=== PATIENT | female | born 1995 | race Caucasian/White ===

== ENCOUNTER 2024-06-05 04:13 | Emergency (ER) | payer OTHER, SELFPAY ==
[2024-06-05 04:14] VITALS: BMI 45.9
[2024-06-05 04:15] VITALS: BP 164/100
[2024-06-05 04:28] VITALS: BP 144/114
--- NOTE | 2024-06-05 04:36 | ED.GENMED ---
History of Present Illness
General
Chief Complaint: Abdominal Pain
Source: patient
Exam Limitations: none
Time Seen by Provider: 06/05/24 04:22
Nursing documentation reviewed up to this point in time: agreed with
History of Present Illness
History of Present Illness:
This is a 28-year-old female with history of irritable bowel syndrome, hypothyroidism who complains of right lateral flank pain that began yesterday evening, has gotten worse throughout the evening, branch lead. She denies insightful injury but
does admit to significant bending/lifting yesterday while she was at a medical facility with her son who was being evaluated. She has had a cough, ongoing for the past 4 weeks, denies fever but admits that cough has worsened over the past 4 days.
Right lateral flank pain is much worse with movement, worse with deep breath. She denies shortness of breath, denies palpitations, denies abdominal pain, no nausea or vomiting, no diarrhea nor constipation, no dysuria and urgency and or hematuria.
She took Tylenol at 10 PM without relief. She has also been trying local heat, ice without significant relief.
Her menstrual period began yesterday, normal and on time.
Her only daily medication is levothyroxine but she admits that she often forgets this. She does not take control. Non-smoker.
No recent travel. She denies leg pain or swelling.
Past History
Past History
ED Past Medical History: Asthma (as child), Hypothyroidism and Other (Irritable bowel syndrome)
ED Past Surgical History: None
Social History
Tobacco: Non-smoker
Alcohol: Occasional
Personal: Single
Living: with family
Employment: Not employed
Family History
Family History: Other (Noncontributory)
Phy Exam
Physical Exam
Physical Exam:
GENERAL: 28-year-old obese woman appears her stated age, awake and alert, tearful and appears in moderate distress related to pain. Cooperative.
EYE: Tearful. Anicteric
NECK: Supple, nontender, no meningismus, no significant adenopathy.
ENT: oral mucosa is moist. Clear rhinorrhea.
CARDIAC: Regular rate and rhythm. no murmur. No rub. Moderate tenderness right lateral mid to distal costal region. Palpation exactly reproduces patient's pain complaint. No crepitus. There is minimal erythema right lateral lower costal region
that I suspect is related to recent ice/heat application. There is no vesicle formation. No palpable heat.
LUNGS: Clear breath sounds bilaterally, no acute respiratory distress, no wheezes/rales/rhonchi
ABDOMEN: Rotund, soft, nondistended, without focal tenderness, no r/g, no cvat. normoactive BS.
BACK: No midline bony tenderness.
NEUROLOGICAL: Alert and oriented x3, no focal neuro deficits. Gait is steady.
SKIN: Warm and dry, normal color, skin intact. No rash.
MUSCULOSKELETAL: No C/C/E. peripheral pulses are full and equal b/l. No palpable tenderness.
PSYCH: Mildly anxious, tearful.
Course
Orders/Labs/Results
Orders:
Orders
06/05/24 04:35
0.9% Sodium Chloride 1000 ml [Nss] 1,000 ml IV BOLUS
Ketorolac [Toradol] 30 mg IV NOW STA
Test Result ONCE
06/05/24 04:46
Comprehensive Metabolic Panel Urgent
D-Dimer Urgent
HCG, Serum Qualitative Screen Urgent
06/05/24 04:47
Complete Blood Count/With Diff Urgent
Free T4 Urgent
TSH Reflex To Free T4 Urgent
06/05/24 05:42
CR Chest - 2 Views Urgent
Comment:
Reason For Exam: cough x 4 weeks, right lateral rib pain
06/05/24 06:23
Azithromycin [Zithromax] 500 mg PO NOW STA
06/05/24 06:29
Acetaminophen 1000 MG ONCE Acetaminophen 1000MG/100Ml [Ofirmev] 1,000 mg in 100 ml IV ONCE
Acetaminophen IV Indication:: ED Narcotic Naive Pt-ONCE
Abnormal Lab Results
06/05/24 06/05/24
04:46 04:47
MCHC 32.8 L g/dL
(33.0-37.0)
Abs Immat Gran (auto) 0.1 H 10^3/uL
(0-0.05)
Absolute Neuts (auto) 7.1 H 10^3/uL
(1.4-6.5)
Immature Gran % 0.6 H %
(0-0.5)
Glucose 117 H mg/dl
(70-99)
TSH (Reflex) 5.02 H uIU/ml
(0.47-4.68)
06/05/24 04:47
06/05/24 04:46
Vital Signs
Initial and Last Documented VS:
Initial Vital Signs
Temp Pulse Resp BP Pulse Ox
98.9 F 88 16 164/100 97
06/05/24 04:15 06/05/24 04:15 06/05/24 04:15 06/05/24 04:15 06/05/24 04:15
Last Documented Vital Signs
Temp Pulse Resp BP Pulse Ox
98.9 F 88 16 144/114 97
06/05/24 04:15 06/05/24 04:15 06/05/24 04:15 06/05/24 04:28 06/05/24 04:30
MDM/Problems Addressed
Differential Diagnosis Includes:
Concern for musculoskeletal/intercostal muscle strain. Concern for pneumonia, pleurisy. Prodrome to herpes zoster is much less likely.
No definitive risk factors for thromboembolism but right lateral flank pain is somewhat pleuritic in nature.
Area of pain is much higher in the right lateral thorax region and not consistent with renal colic, there is no CVA tenderness on exam.
Abdomen is soft without appreciable tenderness.
Will medicate for pain with IV Toradol.
Will check labs including D-dimer.
Will consider chest x-ray versus CT of the chest.
*Radiology
Radiology exam reviewed: preliminary read by ED provider (Chest x-ray, although poor inspiratory effort shows small patchy infiltrates on the left, left upper lobe as well as left lower lobe. Right lung field is clear. No pleural effusion. No
pneumothorax.)
*Pulse Oximetry
Patient hypoxic: no
*Critical Care Note
Total Time (30-74mins, 75-104mins- exclusive of procedures): Not Applicable
Update Note
Update Note:
05:45
Patient resting comfortably.
Reports marked improvement in pain after IV Toradol.
Labs are unremarkable including negative D-dimer.
TSH is only minimally elevated at 5.02. Free T4 is pending.
Will check chest x-ray.
06:30
Chest x-ray concerning for small focal infiltrates left upper lobe as well as left lower lobe. Right lung field is clear. No pleural effusion.
Will initiate Zithromax for coverage of community-acquired pneumonia.
Will add Tessalon for as needed cough.
Will add diclofenac for as needed pain.
Recommend continuing with local heat, can trial onpz-vms-exnwoyw lidocaine patches.
Free T4 within normal limits.
Patient admits to poor compliance with levothyroxine and although TSH is very mildly elevated, free T4 within normal limits and at this point not convincing that patient requires levothyroxine.
Will refer to our family practice residency clinic for follow-up.
ED Attending Note
-
Portions of this chart may have been created with voice recognition software.� Occasional wrong word or��sound alike� substitutions may have occurred due to the inherent limitations of voice recognition software.
Discharge Plan
Departure
Patient Disposition: Home (Routine Discharge)
Date of Disposition: 06/05/24
Time of Disposition: 06:31
Patient with high blood pressure during this ER visit?: Yes
Condition: Good
Discharge Problem:
Intercostal muscle strain, Community acquired pneumonia, mildly elevated TSH
Instructions: Muscle strain, Community-acquired pneumonia in adults, BLOOD PRESSURE
Prescriptions:
New
azithromycin [Zithromax TRI-JESSICA] 500 mg tablet
500 mg PO DAILY 3 Days Qty: 3 0RF
benzonatate 200 mg capsule
200 mg PO TID PRN (Reason: cough) Qty: 30 0RF
diclofenac sodium 75 mg tablet,delayed release (DR/EC)
75 mg PO BID PRN (Reason: pain) Qty: 30 0RF
No Action
Levothyroxine
50 mcg PO DAILY
Referrals:
[facility] [Provider Group] - Call in 1-3 days for appt
UNKNOWN - PT DOES,NOT KNOW [Family Provider] -
Interventions
Interventions:
*Risk Screen - Suicide Last Done: 06/05/24 04:15
*General Assessment Last Done: 06/05/24 04:15
*Neglect/Abuse Screening Last Done: 06/05/24 04:15
FM-Gjzysz-Agcbmlvmxi Assessment Last Done: 06/05/24 05:14
Discharge Date and Time
Print Language: GAMBIAN
[2024-06-05] MEDS: NSS 1000 IV (04:53)
[2024-06-05] MEDS: TORADOL 30 MG IV (04:53)
[2024-06-05 04:54] LABS: % Basophils 0.7 % (0-2); % Eosinophils 2.2 % (0-6); % Immature Granulocytes 0.6 % (0-0.5); % Lymphocytes 24.2 % (20.5-51.1); % Monocytes 5.9 % (1.7-9.3); % Neutrophils 66.4 % (42.2-75.2); Absolute Basophils 0.1 10^3/uL (0-0.2); Absolute Eosinophils 0.2 10^3/uL (0-0.7); Absolute Immature Granulocytes 0.1 10^3/uL (0-0.05); Absolute Lymphocytes 2.6 10^3/uL (1.2-3.4); Absolute Monocytes 0.6 10^3/uL (0.1-0.6); Absolute Neutrophils 7.1 10^3/uL (1.4-6.5); Hematocrit 37.5 % (37.0-47.0); Hemoglobin 12.3 g/dL (12.0-16.0); Mean Corp Hgb Conc. 32.8 g/dL (33.0-37.0); Mean Corpuscular Hgb 27.4 pg (27.0-31.0); Mean Corpuscular Volume 83.5 fL (81.0-99.0); Nucleated Red Blood Cells % 0 %; Platelet Count 370 10^3/uL (130-400); Red Blood Cell Count 4.49 10^6/uL (4.20-5.40); Red Cell Dist. Width 14.3 % (11.5-14.5); White Blood Cell Count 10.7 10^3/uL (4.8-10.8)
[2024-06-05 05:00] VITALS: BP 158/128
[2024-06-05 05:11] LABS: HCG, Serum Qualitative Screen Negative
[2024-06-05 05:14] LABS: ALT (SGPT) 15 U/L (0-35); AST (SGOT) 16 U/L (14-36); Alkaline Phosphatase 69 U/L (38-126); Blood Urea Nitrogen 16 mg/dl (7-17); Calcium 9.4 mg/dl (8.4-10.2); Carbon Dioxide 24 mmol/L (22-30); Chloride 104 mmol/L (98-107); Estimated Creatinine Clearance > 125 ml/min; Glucose 117 mg/dl (70-99); Potassium 4.3 mmol/L (3.5-5.1); Sodium 137 mmol/L (135-145); Total Bilirubin 0.5 mg/dl (0.2-1.3); Total Protein 6.9 g/dl (6.3-8.2); eGFR > 60.00
[2024-06-05 05:20] LABS: D-Dimer < 0.27 ug/mlFEU (0.00-0.50)
[2024-06-05 05:51] LABS: TSH Reflex To Free T4 5.02 uIU/ml (0.47-4.68)
[2024-06-05 06:00] VITALS: BP 126/73
[2024-06-05 06:21] LABS: Free T4 0.98 ng/dl (0.78-2.19)
[2024-06-05] MEDS: ZITHROMAX 500 MG PO (06:33)
[2024-06-05] MEDS: OFIRMEV 100 IV (06:34)
== END 2024-06-05 06:59 | disposition home or self-care (01) ==
LOC: EMR 04:13
PROVIDERS: EMERGENCY PHYSICIAN Emergency Medicine
DX: S29.011A Strain of muscle and tendon of front wall of thorax, initial encounter (principal); X58.XXXA Exposure to other specified factors, initial encounter; J18.9 Pneumonia, unspecified organism; E03.9 Hypothyroidism, unspecified; J45.909 Unspecified asthma, uncomplicated; Z79.899 Other long term (current) drug therapy
CPT/HCPCS: 96374; 96375; 96361; 99284; 71046; 80053; 84439; 84443; 84703; 85025; 85379

== ENCOUNTER 2025-03-20 02:37 | Emergency (ER) | payer OTHER, SELFPAY ==
[2025-03-20 02:39] VITALS: BP 151/93
--- NOTE | 2025-03-20 05:51 | ED.GENMED ---
History of Present Illness
<Debbi Diego DO - Last Filed: 03/20/25 05:56>
General
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
Time Seen by Provider: 03/20/25 04:22
<Lewis Ball MD, Resident - Last Filed: 03/20/25 06:07>
General
Source: patient
History of Present Illness
History of Present Illness:
Patient is a 29-year-old female, with past medical history of hypothyroidism, who came to the ER with concerns about increased vaginal discharge, itching and mentioned that she does not remember if you pulled out her last tampon on when she
finished her period.
She became concerned and worried, denies any fever, rash, greenish or brownish discharge.
She ended her period about 3 days ago, on normal time and is pretty certain she pulled out her last tampon but still feels worried and is here for reassurance.
Past History
<Debbi Diego DO - Last Filed: 03/20/25 05:56>
Past History
ED Past Medical History: Asthma (as child), Hypothyroidism and Other (Irritable bowel syndrome)
ED Past Surgical History: None
Social History
Tobacco: Non-smoker
Alcohol: Occasional
Personal: Single
Living: with family
Employment: Not employed
Family History
Family History: Other (Noncontributory)
Phy Exam
<Lewis Ball MD, Resident - Last Filed: 03/20/25 06:07>
General Physical Exam
General Presentation: well appearing and no apparent distress
General age: appears stated age
General Skin: warm and dry
General Habitus: normal
Cardiovascular Exam
Cardiovascular Exam: regular rate/rhythm, no edema, no gallop, no murmur and normal peripheral pulses
Pulmonary Exam
Pulmonary Exam: lungs clear, no respiratory distress and no rales
Gastrointestinal Exam
Gastrointestinal Exam: normal bowel sounds, non tender and soft
Genitourinary Exam Female
Exam Female: no adnexal tenderness, no bleeding and no lesions
Vaginal Exam: normal and other (Normal physiological discharge, no visible lesions, speculum exam showed no retained tampon)
Neurological Exam
Neurological Exam: alert and oriented x3
Musculoskeletal Exam
Musculoskeletal Exam: full ROM
Course
<Debbi Diego, - Last Filed: 03/20/25 05:56>
Orders/Labs/Results
Orders:
Orders
03/20/25 05:43
Vaginitis Panel by TMA [S] Urgent
GC Culture Urgent
REJI Source: Cervix
Specimen Description:
Date Specimen was Collected: 03/20/25
Time Specimen was Collected: 05:41
Genital Culture Urgent
REJI Source: Cervix
Specimen Description:
Date Specimen was Collected: 03/20/25
Time Specimen was Collected: 05:41
Vital Signs
Initial and Last Documented VS:
Initial Vital Signs
Temp Pulse Resp BP Pulse Ox
97.7 F 83 16 151/93 96
03/20/25 02:39 03/20/25 02:39 03/20/25 02:39 03/20/25 02:39 03/20/25 02:39
Last Documented Vital Signs
Temp Pulse Resp BP Pulse Ox
97.7 F 83 16 151/93 96
03/20/25 02:39 03/20/25 02:39 03/20/25 02:39 03/20/25 02:39 03/20/25 05:55
<Lewis Ball MD, Resident - Last Filed: 03/20/25 06:07>
Orders/Labs/Results
Orders:
Orders
03/20/25 05:43
Vaginitis Panel by TMA [S] Urgent
GC Culture Urgent
REJI Source: Cervix
Specimen Description:
Date Specimen was Collected: 03/20/25
Time Specimen was Collected: 05:41
Genital Culture Urgent
REJI Source: Cervix
Specimen Description:
Date Specimen was Collected: 03/20/25
Time Specimen was Collected: 05:41
Vital Signs
Initial and Last Documented VS:
Initial Vital Signs
Temp Pulse Resp BP Pulse Ox
97.7 F 83 16 151/93 96
03/20/25 02:39 03/20/25 02:39 03/20/25 02:39 03/20/25 02:39 03/20/25 02:39
Last Documented Vital Signs
Temp Pulse Resp BP Pulse Ox
97.7 F 83 16 151/93 96
03/20/25 02:39 03/20/25 02:39 03/20/25 02:39 03/20/25 02:39 03/20/25 05:55
<Lewis Ball MD, Resident - Last Filed: 03/20/25 06:07>
MDM/Problems Addressed
Differential Diagnosis Includes:
Nonspecific vaginitis
Candidiasis
PID
MDM/Problems Addressed:
Patient has no concerns except for making sure that she does not have a retained tampon. Speculum exam done no retained tampon found. Culture sent for vaginitis panel and GC.
Advised the patient to follow-up with her primary care physician
But call if there is anything concerning on the culture
Advised to return to ER in case of severe pain, fever, nausea, vomiting or worsening symptoms
<Debbi Diego DO - Last Filed: 03/20/25 05:56>
*Pulse Oximetry
SaO2: 96
Oxygen Mode of Delivery: Room air
<Lewis Ball MD, Resident - Last Filed: 03/20/25 06:07>
*Pulse Oximetry
Patient hypoxic: no
*Critical Care Note
Total Time (30-74mins, 75-104mins- exclusive of procedures): Not Applicable
ED Attending Note
<Debbi Diego DO - Last Filed: 03/20/25 05:56>
ED Attending Note
Patient seen and examined by attending physician: Yes
I performed a history and physical exam of patient and discussed management with resident, I reviewed resident's note and agree with documented findings and plan of care.: Yes
ED Attending Note:
29-year-old female presents with complaints of whitish to clemons vaginal discharge she noticed tonight and concern for retained tampon x 3 days. Menses ended 3 days ago, normal and on time. She is pretty sure she retrieved the tampon but did not
exactly positive and admits that she has been causing irritation to her vulva while attempting to retrieve a retained tampon. She denies itch. Admits to mild lower pelvic discomfort. No dysuria and urgency and or hematuria. No fever and or
chills.
Last sexual intercourse was 2 months ago. No prior history of STI.
29-year-old overweight woman appears her stated age. Bright and alert, pleasant, appears in no acute distress.
: No vulvar irritation or excoriation. Speculum exam reveals nulli-parous cervix. No retained foreign body within the vaginal vault. There is scant clear vaginal discharge. No bleeding. Bimanual exam benign.
No definitive evidence of vaginitis. Genital culture as well as GC chlamydia culture obtained.
Recommend supportive measures. Avoid douching. Avoid bubble baths.
Patient will be notified if cultures are positive.
Follow-up with PCP for recheck as needed.
-
Portions of this chart may have been created with voice recognition software.� Occasional wrong word or��sound alike� substitutions may have occurred due to the inherent limitations of voice recognition software.
Discharge Plan
Departure
Patient Disposition: Home (Routine Discharge)
Date of Disposition: 03/20/25
Time of Disposition: 05:52
Patient with high blood pressure during this ER visit?: Yes
Discharge Problem:
Vaginitis
Instructions: Vaginitis in adults, BLOOD PRESSURE
Prescriptions:
No Action
Levothyroxine
50 mcg PO DAILY
azithromycin [Zithromax TRI-JESSICA] 500 mg tablet
500 mg PO DAILY 3 Days Qty: 3 0RF
benzonatate 200 mg capsule
200 mg PO TID PRN (Reason: cough) Qty: 30 0RF
diclofenac sodium 75 mg tablet,delayed release (DR/EC)
75 mg PO BID PRN (Reason: pain) Qty: 30 0RF
Referrals:
NONE,* [Family Provider, Internal Medicine] - Call in 1-3 days for appt
Interventions
Interventions:
*Risk Screen - Suicide Last Done: 03/20/25 02:39
*General Assessment Last Done: 03/20/25 02:39
*Neglect/Abuse Screening Last Done: 03/20/25 04:55
*ED COVID-19 Vaccine History Last Done: 03/20/25 04:55
*ED Influenza Vaccine History Last Done: 03/20/25 04:55
[facility] Fall Risk Assessment Tool Last Done: 03/20/25 04:54
*Nursing Disposition Last Done: 03/20/25 05:58
ED-Female Genitourinary Assessment Last Done: 03/20/25 04:54
Discharge Date and Time
Discharge Date/Time: 03/20/25 05:58
Print Language: CAMBODIAN
== END 2025-03-20 05:58 | disposition home or self-care (01) ==
LOC: EMR 02:37
PROVIDERS: EMERGENCY PHYSICIAN Emergency Medicine
DX: N76.0 Acute vaginitis (principal); E03.9 Hypothyroidism, unspecified; L29.9 Pruritus, unspecified; E66.3 Overweight; J45.909 Unspecified asthma, uncomplicated; K58.9 Irritable bowel syndrome, unspecified
CPT/HCPCS: 99282; 87070; 87081